=== PATIENT | male | born 1935 | race Caucasian/White ===

== ENCOUNTER 2018-09-21 09:56 | Emergency (ER) | payer OTHER ==
[~2018-09-21] VITALS: Ht 177.8 cm; Wt 86.2 kg
[2018-09-21 10:07] VITALS: Ht 177.8 cm; Wt 86.2 kg
[2018-09-21 10:50] LABS: CALCIUM 9.8 mg/dL (8.5-10.1); CARBON DIOXIDE 26.1 mmol/L (21-32); CHLORIDE SERUM 109 mmol/L (98-107); CREATININE SERUM 1.3 mg/dL (0.7-1.3); GLUCOSE SERUM 115 mg/dL (74-106); SODIUM SERUM 146 mmol/L (136-145)
[2018-09-21 10:55] LABS: ALBUMIN 3.8 g/dL (3.4-5.0); ALKALINE PHOSPHATASE 106 U/L (46-116); ALT/SGPT 8 U/L (16-63); AST/SGOT 8 U/L (15-37); BILIRUBIN TOTAL 3.02 mg/dL (0.20-1.00); TOTAL PROTEIN, SERUM 7.6 g/dL (6.4-8.2)
[2018-09-21 10:56] LABS: PLATELET COUNT 195 x10^3mcL (130-400)
[2018-09-21] MEDS ORDERED: ZESTRIL5 MG (12:01)
[2018-09-21] MEDS ORDERED: ELIQUIS2.5 MG (12:01)
[2018-09-21 12:10] LABS: PHOSPHOROUS 2.5 mg/dL (2.5-4.9)
[2018-09-21 13:57] LABS: microscopic required? YES; urine erythrocyte 1+ (NEGATIVE)
[2018-09-21 14:15] VITALS: BP 165/83
== END 2018-09-21 14:46 | disposition home or self-care (01) ==
LOC: ED 09:56
PROVIDERS: Emergency Medicine
DX: E86.0 Dehydration (principal); R53.1 Weakness; I10 Essential (primary) hypertension; I48.91 Unspecified atrial fibrillation
CPT/HCPCS: J7030; Q0092

== ENCOUNTER 2018-10-09 13:20 | Inpatient (IN) | payer OTHER ==
[~2018-10-09] VITALS: Ht 170.2 cm; Wt 92.5 kg
[~2018-10-09 13:20] MED LIST: ELIQUIS2.5 MG; ZESTRIL5 MG
[2018-10-09 13:29] VITALS: Ht 170.2 cm; Wt 92.5 kg
--- NOTE | 2018-10-09 13:40 | NUR ---
PT BIB [facility] AND PLACED IN BED. PT AAOX4 WITH C/O INCREASED GENERALIZED WEAKNESS TODAY. [facility] WAS CALLED INITIALLY FOR A LIFT ASSIST S/P PT FALL WHILE WALKING TO RESTROOM WITH WALKER. PT STATES HE WAS UNABLE TO WALK THE DISTANCE AND FELL SIDEWAYS. PT'S FAMILY MEMBERS WERE UNABLE TO LIFT PT SO THEY CALLED 911. PT ALSO STATING HE IS OUT OF HIS HOME MEDICATIONS X 2 DAYS. PT WITH NO OTHER COMPLAINTS AT THIS TIME. PT PLACED ON MONITOR. NO SIGNS OF DISTRESS NOTED AT THIS TIME.
--- NOTE | 2018-10-09 13:51 | NUR ---
DR POLLARD MADE AWARE OF PT'S CURRENT O2 SAT, STS TO HAVE RT DRAW ABGS PRIOR TO PLACING PT ON 2L VIA NC.
--- NOTE | 2018-10-09 13:52 | NUR ---
PT'S LABS DRAWN FROM [facility] IV.
--- NOTE | 2018-10-09 13:59 | NUR ---
PT ASSISTED WITH URINAL AT BEDSIDE, STS "I NEED MORE TIME" PRIVACY GIVEN.
--- NOTE | 2018-10-09 14:07 | NUR ---
XRAY AT BEDSIDE.
--- NOTE | 2018-10-09 14:09 | NUR ---
PT TAKEN TO CT.
[2018-10-09 14:18] LABS: CALCIUM 9.4 mg/dL (8.5-10.1); CARBON DIOXIDE 26.6 mmol/L (21-32); CHLORIDE SERUM 107 mmol/L (98-107); CREATININE SERUM 1.2 mg/dL (0.7-1.3); GLUCOSE SERUM 107 mg/dL (74-106); POTASSIUM SERUM 4.1 mmol/L (3.5-5.1); SODIUM SERUM 140 mmol/L (136-145)
[2018-10-09 14:19] LABS: BASOPHIL % 0.6 % (0-2); PLATELET COUNT 181 x10^3mcL (130-400); RED CELL DISTRIBUTION WIDTH 13.9 % (11.5-14.5)
--- NOTE | 2018-10-09 14:25 | NUR ---
PER DR LATRICE ESPINAL TO SEND URINE FOR TESTING NO URINE DIP NEEDED.
[2018-10-09 14:29] LABS: ALBUMIN 3.5 g/dL (3.4-5.0); ALKALINE PHOSPHATASE 112 U/L (46-116); AST/SGOT 18 U/L (15-37); C REACTIVE PROTEIN 0.5 mg/dL (<=0.9); TOTAL PROTEIN, SERUM 7.1 g/dL (6.4-8.2)
[2018-10-09 14:31] LABS: CK-MB 1.4 ng/mL (0-3.6); FREE T4 1.23 ng/dL (0.76-1.46); FREE THYROXINE INDEX 3.6 ug/dL (1.4-4.5); T4(THYROXINE) 9.6 ug/dL (4.7-13.3)
[2018-10-09 14:43] LABS: T3 TOTAL 1.08 ng/mL
[2018-10-09 14:46] LABS: ALT/SGPT 14 U/L (16-63)
--- NOTE | 2018-10-09 14:50 | NUR ---
PT ASSISTED ONTO BEDSIDE COMMODE WITH EMT RACHEL FOR ASSISTANCE, PT REQUESTING PRIVACY UPON ATTEMPTING TO HAVE BM. CALL LIGHT WITHIN REACH, PRIVACY PROVIDED.
[2018-10-09 15:06] LABS: ERYTHROCYTE SED RATE 18 mm/hr (0-20)
--- NOTE | 2018-10-09 15:09 | NUR ---
HARD, FORMED AND YELLOW/ORANGE BM NOTED IN BEDSIDE COMMODE, PT WAS CLEANED BY ME, UPON PLACING PT BACK INTO BED, PT STS "I NEED THE URINAL", PT PROVIDED WITH PRIVACY WHILE USING URINAL. PT ON FULL CM, CALL LIGHT WITHIN REACH.
[2018-10-09 15:12] LABS: microscopic required? YES; urine erythrocyte TRACE (NEGATIVE)
--- NOTE | 2018-10-09 16:05 | NUR ---
PT STS HE HAS HAD AN INCREASE OF URINARY FREQUENCY AND PAIN TO PENIS UPON URINATING, PT STS "IT TAKES A LONG TIME TO PEE", DR POLLARD MADE AWARE, NO NEW ORDERS GIVEN.
--- NOTE | 2018-10-09 16:07 | NUR ---
ATTEMPTED TO GIVE REPORT TO JULIET ALCANTARA STS SHE WILL CALL BACK IN APPROX 15 MINS TO RECEIVE REPORT FOR PT.
--- NOTE | 2018-10-09 16:15 | NUR ---
TONIA BARRERA, PT'S SON PERSONAL CELL [phone] TOÑO HOLLY PT'S PERSONAL [phone] KRISTIAN BARRERA PT'S SON PERSONAL CELL [phone] MIGUEL A BARRERA PT'S GRANDSON PERSONAL CELL [phone]
--- NOTE | 2018-10-09 16:29 | NUR ---
REPORT GIVEN TO MARICRUZ CHUNG TO ASSUME CARE OF PT.
--- NOTE | 2018-10-09 16:45 | NUR ---
PT RECIEVED FROM ER VIA [facility]. BP 201/99, HR 79, WILL NOTIFY DR PATEL. A/O X4 WITH NO [place]LL[place] OR DIZZINESS. TELE #12 CONNECTED TO PT. DENIES ANY CP OR PRESSURE AT THIS TIME. IV IN LAC INTACT AND PATENT WITH NO REDNESS OR INFLAMMATION. SAFETY PRECAUTIONS IN PLACE, CALL LIGHT WITHIN REACH, WILL MONITOR.
--- NOTE | 2018-10-09 16:45 | NUR ---
PT RECIEVED FROM ER VIA [facility]. BP 201/99, HR 79, CHARGE NOTIFIED, CLONIDINE 0.1 MG PRN GIVEN AND WILL REASSESS. A/O X4 WITH NO [place]LL[place] OR DIZZINESS. TELE #12 CONNECTED TO PT. DENIES ANY CP OR PRESSURE AT THIS TIME. IV IN LAC INTACT AND PATENT WITH NO REDNESS OR INFLAMMATION. SAFETY PRECAUTIONS IN PLACE, CALL LIGHT WITHIN REACH, WILL MONITOR.
--- NOTE | 2018-10-09 18:25 | NUR ---
CALLED DR PATEL AND NOTIFIED HIM OF PT BLOOD PRESSURE OF 201/99 AND THEN 190/93. ALSO NOTIFIED HIM ABOUT PT LACTIC ACID OF 3.3. NEW ORDERS FOR HYDRALOZINE 20MG IVP NOW AND THEN HYDRALOZINE 10MG IVP Q 4 HRS PRN. WILL CARRY OUT.
[2018-10-09 19:00] VITALS: BP 151/64
--- NOTE | 2018-10-09 19:10 | NUR ---
PT BP NOW AT 151/64, P 77, MAP 91. NO DISTRESS NOTED. ALL CARES TOLERATED WELL, NO DISTRESS, PAIN, OR SOB NOTED. IV INTACT AND PATENT WITH NO REDNESS OR INFLAMMATION NOTED. DENIES ANY CP OR PRESSURE. SAFETY PRECAUTIONS IN PLACE, CALL LIGHT WITHIN REACH, WILL ENDORSE CARE TO NIGHT NURSE.
[2018-10-09 19:15] VITALS: BP 201/99
--- NOTE | 2018-10-09 20:12 | NUR ---
RECEIVED PATIENT IN BEDAWAKE, ALERT AND ORIENTED WITH NO SIGN OF ACUTE DISTRESS NOTED. TELE#12 AFIB ON MONITOR, DENIES CHEST DISCOMFORT. EDEMA +2 NOTED TO BLE, PATIENT ON ELIQUIZ PO. RESPIRATION EVENA ND NONLABOR WITH CLEAR BS. ABDOMEN ROUND AND NONTENDER WITH ACTIVE BS. IV TO LAC INTACT, HEPLOCK. WILL CONTINUE TO MONITOR.
--- NOTE | 2018-10-09 20:56 | NUR ---
C/O PAIN IN URINATION TYLENOL 650MG PO GIVEN AND TO PAGE DR PATEL.
[2018-10-09 21:25] VITALS: BP 161/80
--- NOTE | 2018-10-09 21:50 | NUR ---
SPOKE DR PATEL OVER THE PHONE RE PATIENT C/O OF PAIN AND DIFFICULTY IN URINATION. BLADDER SCAN SHOWED 369 ML OF URINE, MOSELEY CATH INSERTED ORDERED BY DR PTAEL. BLOOD NOTED ON TUBINGS ON INSERTION. WILL CONTINUE TO MONITOR.
--- NOTE | 2018-10-10 05:04 | NUR ---
CHECKED AT INTERVALS FOR NEEDS AND SAFETY. HAD BM X1 IN SMALL AMOUNT. BP-196/87, CATAPRES 0.1MG PO GIVEN. WILL CONTINUE TO MONITOR.
[2018-10-10 05:41] VITALS: BP 196/87
--- NOTE | 2018-10-10 06:10 | NUR ---
C/O LOWER ABDOMINAL PAIN TYLENOL 650MG PO GIVEN. BP RECHECKED-148/51 AFTER CLOMIDINE PO WAS GIVEN. SB 48 ON TELE, VITAL SIGN CHECKED BP-148/51 MAP-83. R-17, HR-48, O2 SAT97% RA. PATIENT ASSYMPTOMATIC. WILL ENDORSE CONTINOUS CARE TO AM SHIFT.
[2018-10-10 06:13] VITALS: BP 148/51
[2018-10-10 06:27] LABS: CALCIUM 9.2 mg/dL (8.5-10.1); CARBON DIOXIDE 21.6 mmol/L (21-32); CHLORIDE SERUM 106 mmol/L (98-107); CREATININE SERUM 1.9 mg/dL (0.7-1.3); GLUCOSE SERUM 118 mg/dL (74-106); POTASSIUM SERUM 4.4 mmol/L (3.5-5.1); SODIUM SERUM 140 mmol/L (136-145)
--- NOTE | 2018-10-10 07:20 | NUR ---
RECEIVED HAND OFF REPORT FROM NURSE. PATIENT IS FOUND LAYING SEMIFOWLERS IN BED. EYES CLOSED BUT ROUSABLE TO PHYSICAL STIMULI THEN A/O X4. PATIENT DENIES COMPLAINTS AT THIS TIME. TELE MONITOR SHOWING AFIB MIQUEL IN THE 40'S NURSE REPORTED THAT BLOOD PRESSURE WAS VERY HIGH LAST NIGHT AND LOW HEART RATE IS POSSIBLE DUE TO BLOOD PRESSURE MEDICATION. MOSELEY CATH IN PLACE DRAINING DARK MARSHALL URINE TO BAG, TUBING PROXIMAL TO PATIENT HAS DARK RED BLOOD. WILL MAKE DR AWARE. CALL LIGHT WITHIN REACH OF PATIENT, WILL CONTINUE TO MONITOR
[2018-10-10 08:49] VITALS: BP 134/67
--- NOTE | 2018-10-10 09:23 | NUR ---
DR. PATEL WITH PATIENT AT THIS TIME. INFOMRED DR OF BLOOD SEEN IN MOSELEY CATH. DR WILL START PATIENT ON FLOWMAX DUE TO BPH. UPDATED DR OF PATIENT BLOOD PRESSURE AND HR. NEW ORDERS TO BE ENTERED. DR STATED THAT PATIENT WILL BE REMAINING IN HOSPTIAL AND TO MOVE PATIENT FROM OBSERVATION TO INPATIENT. CALL IGHT WITHIN REACH OF PATIENT. PATIENT SITTING UP EAING BREAKFAST AT THIS TIME
--- NOTE | 2018-10-10 10:11 | NUR ---
ADMINISTERED MEDICATION PER MAR. PATIENT AWAKE AND ALERT, SITTING UP IN BED AT THIS TIME. CALL LIGHT WITHIN REACH, WILL CONTINUE TO MONITOR
--- NOTE | 2018-10-10 10:22 | NUR ---
DR PATEL CHANGED BLOOD PRESSURE MEDICATION. RECEIVED ORDER FOR ONE TIME DOSE OF AMLODIPINE SINCE PATIENT DID NOT RECEIVE LISINOPRILL THIS AM.
--- NOTE | 2018-10-10 10:57 | NUR ---
PT WITH PATIENT AT THIS TIME. GETTING PATIENT UP TO WALK AND ASSESS MOBILITY. WILL CONTINUE TO MONITOR
--- NOTE | 2018-10-10 12:01 | NUR ---
PATIENT SITTING UP AT THIS TIME, EATING LLUNCH. DENIES COMPLAINTS. URINE OUTPUT REMAINS AT 100ML IN MOSELEY COLLECTION BAG. CALL LIGHT WITHIN REACH WILL CONTINUE TO MONITOR
[2018-10-10 12:36] VITALS: BP 153/68
--- NOTE | 2018-10-10 14:02 | NUR ---
PATIENT SITTING UP AT THIS TIME. HR IS IN THE 50S SHOWING AFIB ON THE MONITOR. PATIENT DENIES PAIN ABD NOT DISTENDED. REQUESTING TO TAKE NAP AT THIS TIME.
[2018-10-10 16:07] VITALS: BP 165/78
--- NOTE | 2018-10-10 16:15 | NUR ---
(SECOND FACING BASTER) IN THE STATION AND ORDERED PT MOSELEY CATH TO IRRIGATE DUE TO HEMATURIA AND CLOGGING PT MOSELEY CATH. MADE KNOW THAT PT IS ON ELIQUIS AND PT WITH HEMATURIA, SAYS HE WILL NOT DISCONTINUE THE ELIQUIS DUE TO PT ATRIAL FIBRILLATION. SUSAN CHUNG ASSIGNED TO THIS PT MADE AWARE OF ABOVE.
--- NOTE | 2018-10-10 16:18 | NUR ---
PATIENT MOSELEY SHOWS 150 ML OF BARD RED DRAINIAGE. BLADDER SCAN DONE SHOWING APPROX 480ML. INFORMED DR SCHULER. DR ORDERED TO IRRIGATE PATIENT MOSELEY WITH 100CC OF NS. WITH HELP OF RAD CHUNG, PATIENT MOSELEY WAS IRRIGATED WITH APPROX 40Ml OF SLUID AT SUCH TIME THAT PATIENT COMPLAINED OF SEVERE PAIN TO PENIS AREA. BRING RED BLOOD WAS WITHDRAWN WITH MULTIPLE BLOOD CLOTS SEEN. AT THIS TIME US CALLED TO INFORM OF BLADDER SCAN THAT DR SCHULER ORDER. MOSELEY WAS CLAMPED PATIETN STILL HAD FULL BLADDER SO SCAN COULD BE COMPLETED.
--- NOTE | 2018-10-10 17:42 | NUR ---
US TECH COULD NOT VISUALIZE BALLOON OR TIP OF MOSELEY CATH IN BLADDER DURING SCAN, SUSPECTED TO BE INFLATED WITHIN PROSTATE. REMOVED MOSELEY CATH AND WITH ASSISTANCE OF RAD CHUNG ATTEMPTED TO PLACE 24FR 3WAY CATH. UNABLE TO ADVANCE. SUCCESSFULLY PLACED 18FR MOSELEY CATH. DARK RED URINE DRAINED TOTAL OF 600 OUT. US TECH ABLE TO SEE BALLOON AND TIP OF CATH IN BLADDER. IRRIGATED BLADDER WITH 100ML NS PER DR VIDALES ORDER. CLEAN PATIENT AND REPLACED SHEETS. PATIENT REPORTS LESS PAIN FROM SUPRAPUBIC AREA.EATING DINNER AT THIS TIME. CALL IGHT WITHIN REACH WILL REPORT RESULTS TO DR SCHULER
--- NOTE | 2018-10-10 18:47 | NUR ---
CALLED DR Marina KNOX WHO IS WIRELESS SALES ASSOCIATE FOR DR GANGA YAO. UPDATED DR WITH PATIENT CONDITION AND RESULT OF BLADDER SCAN WITH NEW MOSELEY PLACED. RECEIVED ORDER TO FLUSH BLADDER WITH 100CC'S OF NORMAL SALINE AT 10PM. WILL ENDORSE TO NIGHT NURSE. PATIENT STABLE AT THIS TIME.
--- NOTE | 2018-10-10 19:56 | NUR ---
PT RECIEVED AAO REG RESP NO SOB V/S STABLE,KEPT CLEAN AND DRY TO TOUCH,MADE COMFORTABLE IN BED,PT HAS A F/C TO GRAVITY WITH MARSHALL URINE OUTPUT,KEPT CLEAN AND DRY TO TOUCH,PT HAD HIS DINNER AND WILL BE HELP TO EAT BY THE CRIME VICTIM SPECIALIST,PER THE CRIME VICTIM SPECIALIST PATIENT HAD NO TEETH AND ALSO NO DENTURES SO HARD FOR PATIENT TO CHEW AND NOTIFY THE RESIDENT ABOUT THIS AND WILL CONTINUE TO MONITOR.
[2018-10-10 20:16] VITALS: BP 147/62
--- NOTE | 2018-10-10 21:06 | NUR ---
IRRIRGATED AND FLUSH THE MOSELEY WITH 100 CC/HR OF N/S ORDER,WITHOUT ANY RESISTANCE THE URINE FOLLOWING EASILY,DARK MARSHALL IN COLOR.WILL CONTINUE TO MONITOR.
[2018-10-11 05:53] VITALS: BP 118/67
[2018-10-11 06:24] LABS: BASOPHIL % 0.3 % (0-2); PLATELET COUNT 153 x10^3mcL (130-400); RED CELL DISTRIBUTION WIDTH 14.5 % (11.5-14.5)
[2018-10-11 06:28] LABS: CARBON DIOXIDE 23.2 mmol/L (21-32); CHLORIDE SERUM 107 mmol/L (98-107); CREATININE SERUM 1.9 mg/dL (0.7-1.3); GLUCOSE SERUM 100 mg/dL (74-106); POTASSIUM SERUM 4.2 mmol/L (3.5-5.1); SODIUM SERUM 141 mmol/L (136-145)
--- NOTE | 2018-10-11 06:34 | NUR ---
PT HAD A RESTING NIGHT NO CHANGE AT THIS ENOCH,KEPT CLEAN AND DRY TO TOUCH,WILL CONTINUE TO MONITOR.
--- NOTE | 2018-10-11 07:57 | NUR ---
RECEIVED PATIENT FROM JULIET ORTA. PATIENT ASLEEP IN BED, NO VISIBLE SIGNS OF PAIN OR DISTRESS. VS STABLE. WILL AWAIT DR PATEL TO ARRIVE AND SPEAK WITH PATIENT ABOUT PLAN OF CARE FOR TODAY. CALL LIGHT IN REACH, PATIENT CLOSE TO NURSES STATION.
[2018-10-11 08:13] VITALS: BP 104/55
--- NOTE | 2018-10-11 08:29 | NUR ---
RECEIVED A CALL FROM (NEPRHOLOGIST) AND UPDATED HIM OF PT CURRENT STATUS WITH HIS MOSELEY AND UIRNE OUTPUT, NEW ORDER RECEIVED TO START NORMAL SALINE AT 75ML/HR. OLYA CHUNG ASSIGNED TO THIS PT MADE AWARE OF ABOVE.
[2018-10-11] MEDS ORDERED: NOR5 PO (08:32)
[2018-10-11] MEDS ORDERED: LEV250 PO (08:32)
[2018-10-11] MEDS ORDERED: FLO4 PO (08:32)
[2018-10-11] MEDS ORDERED: TYL325 PO (08:33)
[2018-10-11] MEDS ORDERED: PROSCAR5 MG PO (08:33)
--- NOTE | 2018-10-11 09:10 | NUR ---
DR PATEL IN TO SEE PATIENT. WAS TOLD THAT PATIENT BP WAS 104/55 AND TO HOLD BOTH AM HYDRALAZINE AND AM AMLODIPINE. ALSO TOLD DR THAT PT SHERIDAN RECOMMEND SNF PLACEMENT. STATES HE WILL DISCHARGE PATIENT TO SNF, ADJUST MEDICATIONS, AND NEEDS PATIENT TO GO TO SNF W FC. ALSO, CHARGE NURSE RAD SPOKE W DR SCHULER ABOUT PATIENT BLADDER SCAN AND MOSELEY OUTPUT. DR SCHULER WILL ORDER NS FLUIDS FOR PATIENT. WILL WAIT FOR SS TO LOOK FOR PLACEMENT AND CONTINUE TO EVALUATE URINE OUTPUT TO FC.
--- NOTE | 2018-10-11 10:28 | NUR ---
PATIENT CONTINUES TO REFUSE PO MEDICATIONS, ALSO REFUSES PHYSICAL THERAPY SESSION WITH SANGITA CHIU. PATIENT STATES "LEAVE ME ALONE" AND BECAME VERBALLY AGGRESSIVE. DR PATEL MADE AWARE. CALL LIGHT IN REACH, PATIENT RETURNED TO SLEEP.
--- NOTE | 2018-10-11 11:47 | NUR ---
CALLED AND SPOKE TO (SCAFFOLD SETTER) AND MADE HIM AWARE THAT PT IS BEDING DISCHARGE TO SNF FOR REHAB, CLARIFIED WITH HIM IF HE WANTED TO CONTINUE PT IVF FOR HYDRATION AT SNF. NEW ORDER RECEIVED FROM TO INCREASE CURRENT IVF RATE AT 200ML/HR AND ONCE THE LITER OF NS BAG IS OVER TO DISCONTINUE AND HEPLOCK PT. ALSO ORDERED TO HAVE PT FOLLOW UP WITH A UROLOGIST AN OUTPATIENT AND CLEARED PT FOR DISCHARGE TO SNF. CHANI CHUNG ASSIGNED TO THIS PT MADE AWARE OF ABOVE. CALLED ROHAN FROM CASE MANAGEMENT AND MADE HER AWARE OF 'S ORDER.
[2018-10-11 12:05] VITALS: BP 136/63
--- NOTE | 2018-10-11 13:12 | NUR ---
PHYSICAL THERAPY NOTE ATTEMPTED FOR PHYSICAL THERAPY SCHEDULE SCEEION 2ND TIME, PATIENT WAS AGITATED AND REFUSED TO PARTICIPATE AT THIS TIME
[2018-10-11 15:56] VITALS: BP 134/62
--- NOTE | 2018-10-11 16:49 | NUR ---
PATIENT TRANSFER INITIALED BY PATIENT. REPORT GIVEN TO JULIET NGUYEN AT RECEIVING FACILITY. [email or web address]IENT PICK FROM 1830 TO 1700. PATIENT MADE AWARE, DAUGHTER IN [place] MADE AWARE, CHARGE NURSE RAD MADE AWARE. MOSELEY CATHETER IRRIGATED WITH [address] SCHULER. TELE MONITOR REMOVED AND RETURNED TO [facility]. IV CATHTER REMAINS, MOSELEY REMAINS AND ENDORSED TO RECEIVING NURSE. ALSO MADE AWARE THAT PATIENT REQUIRES FU CONSULTATION WITH UROLOGIST. AWAITING TRANSPORT AT THIS TIME, NO COMPLAINTS OF PAIN OR DISCOMFORT.
[2018-10-11 17:16] VITALS: BP 134/62
--- NOTE | 2018-10-11 17:46 | NUR ---
[place] ARRIVED TO TRANSPORT PATIENT. TRANSFER PACKET GIVEN TO [place] STAFF. PATIENT VIA [facility] OFF UNIT.
== END 2018-10-11 17:34 | DRG 682 ==
LOC: ED 13:20 → DU 15:42
PROVIDERS: Specialist; ADMIT Internal Medicine Pulmonary Disease
DX: N17.9 Acute kidney failure, unspecified (principal); J18.9 Pneumonia, unspecified organism; N13.39 Other hydronephrosis; I48.2 Chronic atrial fibrillation; I12.9 Hypertensive chronic kidney disease with stage 1 through stage 4 chronic kidney disease, or unspecified chronic kidney disease; N18.3 Chronic kidney disease, stage 3 (moderate); I25.10 Atherosclerotic heart disease of native coronary artery without angina pectoris; N40.1 Benign prostatic hyperplasia with lower urinary tract symptoms; R33.8 Other retention of urine; Z68.31 Body mass index [BMI] 31.0-31.9, adult; Z87.891 Personal history of nicotine dependence; Z79.01 Long term (current) use of anticoagulants
CPT/HCPCS: 36600; 84439; 97116-GP; G0378; J0360; J2543; J7030; J7050; Q0092

== ENCOUNTER 2018-11-12 15:29 | Inpatient (IN) | payer OTHER ==
[~2018-11-12] VITALS: Ht 170.2 cm; Wt 79.4 kg
[~2018-11-12 15:29] MED LIST changes: +FLO4 PO; +LEV250 PO; +NOR5 PO; +PROSCAR5 MG PO; +TYL325 PO
--- NOTE | 2018-11-12 15:40 | NUR ---
LAB BLOOD DRAW COMPLETED
--- NOTE | 2018-11-12 15:42 | NUR ---
EKG IN PROGRESS
--- NOTE | 2018-11-12 15:48 | NUR ---
PORTABLE CXR AT BEDSIDE
--- NOTE | 2018-11-12 15:48 | NUR ---
PT PRESENTS TO ED VIA AMBULANCE FOR SOB. PER MEDICS THERE WAS A "THERAPIST" AT HOME THAT CHECKED PTS O2 SAT AND NOTICED IT TO BE IN THE LOW TO MID 80'S AND CALLED 911. PT IS AAOX4 LABORED BREATHING LUNGS CTA DENIES CP. PT RECENTLY DISCHARGED FROM HOSPITAL INPATIENT STATUS DUE TO "HYPERTENSIVE CRISIS" PT GOWNED PLACED ON FULL CM AFIB, VSS AT THIS TIME. PT ON 02 VIA MASK AT 10L AT THIS TIME. PT SITTING IN BED IN HIGH FOWLERS POSITION FOR COMFORT. PT HAS POLST DNR, AWAITING MD SWARTZ AND ORDERS WILL MONITOR
[2018-11-12 16:12] LABS: BASOPHIL % 0.4 % (0-2); PLATELET COUNT 361 x10^3mcL (130-400); RED CELL DISTRIBUTION WIDTH 13.5 % (11.5-14.5)
[2018-11-12 16:21] LABS: CALCIUM 8.9 mg/dL (8.5-10.1); CARBON DIOXIDE 23.5 mmol/L (21-32); CHLORIDE SERUM 106 mmol/L (98-107); CREATININE SERUM 3.3 mg/dL (0.7-1.3); GLUCOSE SERUM 111 mg/dL (74-106); POTASSIUM SERUM 3.3 mmol/L (3.5-5.1); SODIUM SERUM 144 mmol/L (136-145)
[2018-11-12 16:24] LABS: ALBUMIN 2.5 g/dL (3.4-5.0); ALKALINE PHOSPHATASE 106 U/L (46-116); ALT/SGPT 10 U/L (16-63); AST/SGOT 14 U/L (15-37); BILIRUBIN TOTAL 2.8 mg/dL (0.20-1.00); TOTAL PROTEIN, SERUM 7.6 g/dL (6.4-8.2)
--- NOTE | 2018-11-12 17:35 | NUR ---
DR WINN AT BEDSIDE SPEAKING WITH PT REGARDING TX AND POC. PT VERBALIZED UNDERSTANDING
--- NOTE | 2018-11-12 17:57 | NUR ---
REPORT GIVEN TO NETTA CHUNG IN TELE FLOOR
--- NOTE | 2018-11-12 18:05 | NUR ---
RECEIVED PT FROM ED VIA [facility], CAME IN DUE TO SOB. AAOX4. DENIES HEADACHE/DIZZINESS. ABLE TO FOLLOW COMMANDS. LEFT HAND EDGE BURNISHER IS WEAKER THAN THE RIGHT. NO ARM DRIFT/FACIAL DROOP NOTED.C/O MILD SOB, O2 SAT=93% ON 4LPM/NC. W/ PRODUCTIVE COUGH, ABLE TO EXPECTORATE PHLEGM (COLOR VARIED FROM GREEN TO YELLOW). LUNG SOUNDS DIMINISHED ON AUSCULTATION. DENIES ABDOMINAL DISCOMFORT. ABDOMEN IS SOFT. HAD SOFT BM TODAY, PT CLEANED AND MADE COMFORTABLE. URINE INCONTINENT. W/ DRY SCAB ON RLE AND DARK BROWN DISCOLORATIONS ON BLE. IV SITE PATENT AND INTACT. RECEIVED PT FROM ED W/ ZITHROMAX AND NS ONGOING. SIDE RAILS UPX2. CALL LIGHT ON REACH. HOB ELEVATED AT 45 DEG. PRIMARY NURSE NETTA AT BEDSIDE FOR CONTINUITY OF CARE
--- NOTE | 2018-11-12 18:10 | NUR ---
PT TO TELE FLOOR VIA GURNEY NO DISTRESS ON PORTABLE CM, NETTA RESUMING IVF INFUSION NOTED IN EMAR.
[2018-11-12 18:19] VITALS: BP 155/70
[2018-11-12 18:29] VITALS: Ht 170.2 cm; Wt 79.4 kg
--- NOTE | 2018-11-12 18:39 | NUR ---
PT RESTING IN NO ACUTE DISTRESS, OCC. PRODUCTIVE COUGH NOTED. HOB ELEVETED. FAMILY AT BEDSIDE. NO C/O PAIN OR DISCOMFORT AT THIS TIME. WILL BE ENDORSED TO INCOMING SHIFT.
--- NOTE | 2018-11-12 19:20 | NUR ---
CARE ASSUMED FROM OUTGONG RN. PT RESTING COMFORTABLY IN BED. NO ACUTE DISTRESS NOTED. EVEN AND UNLABORED RESPIRATIONS ON 4LNC, PRODUCTIVE COUGH NOTED. MEDSURG PT. IV PATENT AND INTACT RUNNING FLUIDS PER EMAR. NO C/O OF PAIN AT THIS TIME. BED IN LOWEST POSITION. SIDE RAILS UPX2. CALL LIGHT WITHIN REACH. WILL CONTINUE TO MONITOR.
[2018-11-12 19:46] VITALS: BP 125/70
--- NOTE | 2018-11-13 00:43 | NUR ---
PT SLEEPING COMFORTABLY IN BED. NO ACUTE DISTRESS NOTED. EVEN AND UNLABORED RESPIRATIONS ON 4LNC. IV PATENT AND INTACT RUNNING FLUIDS PER EMAR. SEIZURE PRECAUTION IN PLACE. BED IN LOWEST POSITION. SIDE RAILS UPX2. CALL LIGHT WITHIN REACH. WILL CONTINUE TO MONITOR.
[2018-11-13 05:53] VITALS: BP 138/55
--- NOTE | 2018-11-13 06:31 | NUR ---
PT SLEPT COMFORTABLY IN INTERVALS THROUGHOUT THE SHIFT. ALL NEEDS TENDED TO AND MET. ALL SCHEDULED MEDICATIONS GIVEN. EVEN AND UNLABORED RESPIRATION ON 4LNC, PRODUCTIVE COUGH WITH THICH YELLOW PHLEGM NOTED. C/O STRESS INCONTINENCE WHILE COUGHING. IV PATENT AND INTACT RUNNING FLUIDS PER EMAR. BED IN LOWEST POSITION. SEIZURE PRECAUTION IN PLACE. SIDE RAILS UPX2. CALL LIGHT WITHIN REACH. WILL ENDORSE TO ONCOMING SHIFT.
[2018-11-13 06:35] LABS: ALKALINE PHOSPHATASE 92 U/L (46-116); ALT/SGPT 12 U/L (16-63); AST/SGOT 11 U/L (15-37); BILIRUBIN TOTAL 1.6 mg/dL (0.20-1.00); CALCIUM 8.1 mg/dL (8.5-10.1); CARBON DIOXIDE 26.5 mmol/L (21-32); CHLORIDE SERUM 111 mmol/L (98-107); CREATININE SERUM 3.3 mg/dL (0.7-1.3); GLUCOSE SERUM 104 mg/dL (74-106); POTASSIUM SERUM 3.7 mmol/L (3.5-5.1); SODIUM SERUM 147 mmol/L (136-145); TOTAL PROTEIN, SERUM 6.4 g/dL (6.4-8.2)
[2018-11-13 07:15] LABS: ALBUMIN 2.1 g/dL (3.4-5.0)
--- NOTE | 2018-11-13 07:20 | NUR ---
RECEIEVED PT FROM NIGHT NURSE. PT IS LAYING DOWN IN BED WITH HOB UP RESTING. PT LOOKS TO BE IN NO ACUTE DISTRESS AT THIS TIME AND DENIES ANY PAIN. RESPIRATIONS EVEN AND UNLABORED ON 4L NC. IV SITE PATENT WITH NO SIGNS OF ERYTHEMA OR SWELLING WITH IV FLUIDS INFUSING. BED IN LOWEST POSITION, CALL LIGHT WITHIN REACH. WILL CONITNUE TO MONITOR.
--- NOTE | 2018-11-13 08:15 | NUR ---
PT STATES HAVING DIFFICULTY CHEWING LARGE PIECES OF FOOD. PT IS REQUESTING TO THAT WOULD BE EASIER TO EAT. WILL NOTIFY
[2018-11-13 08:45] VITALS: BP 138/62
--- NOTE | 2018-11-13 11:45 | NUR ---
PT IS LAYING DOWN IN BED WITH HOB UP RESTING. PT LOOKS TO BE IN NO ACUTE DISTRESS AT THIS TIME AND DENIES ANY PAIN. IV SITE PATENT WITH NO SIGNS OF ERYTHEMA OR SWELLING WITH IV FLUIDS INFUSING. BED IN LOWEST POSITION, CALL LIGHT WITHIN REACH. FAMILY MEMBERS AT BEDSIDE. WILL CONTINUE TO MONITOR.
--- NOTE | 2018-11-13 12:55 | NUR ---
PT IS LAYING DOWN IN BED WITH HOB UP TALKING WITH DR. DR. WINN AT BEDSIDE AND FAMILY AT BEDSIDE DISCUSSING PLAN OF CARE. BED IN LOWEST POSITION, CALL LIGHT WITHIN REACH. WILL CONITNUE TO MONITOR.
[2018-11-13] MEDS ORDERED: ROC1I IV (13:54)
[2018-11-13 14:20] LABS: BASOPHIL % 0.2 % (0-2); PLATELET COUNT 348 x10^3mcL (130-400); RED CELL DISTRIBUTION WIDTH 13.6 % (11.5-14.5)
[2018-11-13 14:40] VITALS: BP 138/62
[2018-11-13 17:38] VITALS: BP 135/54
--- NOTE | 2018-11-13 18:09 | NUR ---
PT IS LAYING DOWN IN BED WITH HOB UP RESTING. PT LOOKS TO BE IN NO ACUTE DISTRESS AT THIS TIME AND DENIES ANY PAIN. IV SITE PATENT WITH NO SIGNS OF ERYTHEMA OR SWELLING WITH IV FLUIDS INFUSING. PT STATES CONTINUING TO HAVE STRESS INCONTIENCE. BED IN RESPRIATIONS EVEN AND UNLABORED ON 4L NC. PRODUCTIVE COUGH CONTINUES. BED IN LOWEST POSITION, CALL LIGHT WITHIN REACH. WILL ENDORSE TO ONCOMING SHIFT.
--- NOTE | 2018-11-13 20:00 | NUR ---
RECEIVED PT IN BED, RESTING QUIETLY IN BED, A/O X4. DENIES HEADACHE/DIZZINESS. RESP. EVEN AND UNLABORED. LUNG SOUNDS DIM. [address], HOB ELEVATED. NO ACUTE DISTRESS NOTED. DENIES CP OR ANY DISCOMFORT AT THIS TIME. IVF, NS AT 80ML/HR, INTACT AND INFUSING VIA LAC, SITE CLEAR. NO COMPLAINTS NOTED AT THIS TIME.ASSISTED WITH HS CARE. CALL LIGHT WITHIN REACH. WILL CONTINUE TO MONITOR.
[2018-11-13 20:10] VITALS: BP 143/81
[2018-11-13 20:53] VITALS: BP 143/81
--- NOTE | 2018-11-14 02:24 | NUR ---
RESTING QUIETLY, WITH EYES CLOSED, APPEARS ASLEEP, EASILY AROUSABLE. RESP. EVEN AND UNLABORED. NO ACUTE DISTRESS NOTED. CALL LIGHT WITHIN REACH. WILL CONTINUE TO MONITOR.
[2018-11-14 06:08] VITALS: BP 157/71
--- NOTE | 2018-11-14 06:24 | NUR ---
SLEPT WELL. NO COMPLAINTS NOTED AT THIS TIME. AFEBRILE AND VITAL SIGNS STABLE. RESP. EVEN AND UNLABORED. [address], TARAH. WELL. NO ACUTE DISTRESS NOTED. IVF INTACT AND INFUSING WELL, SITE CLEAR. KEPT COMFORTABLE. NO SIGNIFICANT CHANGE NOTED IN PT,S CONDITION. CALL LIGHT WITHIN REACH. WILL CONTINUE TO MONITOR.
[2018-11-14 06:35] LABS: ALKALINE PHOSPHATASE 102 U/L (46-116); ALT/SGPT 13 U/L (16-63); AST/SGOT 18 U/L (15-37); BILIRUBIN TOTAL 1.08 mg/dL (0.20-1.00); CALCIUM 8.3 mg/dL (8.5-10.1); CARBON DIOXIDE 23.5 mmol/L (21-32); CHLORIDE SERUM 111 mmol/L (98-107); CREATININE SERUM 3.1 mg/dL (0.7-1.3); GLUCOSE SERUM 112 mg/dL (74-106); POTASSIUM SERUM 3.5 mmol/L (3.5-5.1); SODIUM SERUM 146 mmol/L (136-145)
[2018-11-14 06:52] LABS: ALBUMIN 2.1 g/dL (3.4-5.0); TOTAL PROTEIN, SERUM 6.1 g/dL (6.4-8.2)
[2018-11-14 08:34] VITALS: BP 132/64
--- NOTE | 2018-11-14 08:35 | NUR ---
At 0720, recieved patient from night nurse, he was awake, alert, and appears oriented. IV infusing N/S at 80 ml/hr. Respirations regular, he is on oxygen at 1.5 liters/minute, RT at bedside. At 0820, sitting up in bed for breakfast. Patient appears to have reduced apetite. Refused food at this time. Spoke with business services tech, patient has been ordered renal and bladder ultrasound. Patient is unable to keep full bladder. Instructed patient to call with any needs.
[2018-11-14 10:48] LABS: BASOPHIL % 0.2 % (0-2); PLATELET COUNT 336 x10^3mcL (130-400); RED CELL DISTRIBUTION WIDTH 13.9 % (11.5-14.5)
[2018-11-14 13:23] LABS: microscopic required? YES; urine erythrocyte 3+ (NEGATIVE)
[2018-11-14 14:08] VITALS: BP 132/64
--- NOTE | 2018-11-14 14:17 | NUR ---
AT 1300 - URINE COLLECTED AND TAKEN TO LAB FOR UA AND URINE SMEAR ORDERED. URINE IS TURBID WITH SEDIMENTS. PATIENT CONTINUES TO HAVE SOME STRESS INCONTINENCE. AT 1415 - RECEIVED ORDER FOR PLACEEMTN OF URINARY CATHETER FOR HYDRONEPHROSIS.
--- NOTE | 2018-11-14 15:14 | NUR ---
AT 1440 - MOSELEY CATHETER INSERTED AND LEFT ON FREE DRAINAGE. INITIAL URINE WAS YELLOW BUT WITHIN MINUTES URINE DRAINAGE NOTED TO BE OPAQUE PALE BROWN. INITIAL DRAINAGE OF 1000 ML OF URINE DRAINED. URINE CULTURE SENT. AT 1500 - COMMENCED ON IV LEVAQUIN. FIRST DOSE IN PROGRESS. SEEN BY DR EDGE. NEW ORDERS RECEIVED. PATIENT PROVIDED WITH SPECIMEN CONTAINER FOR SPUTUM CULTURE.
[2018-11-14 16:16] VITALS: BP 160/69
--- NOTE | 2018-11-14 18:02 | NUR ---
Currently patient is awake, alert, and oriented. Patient is currently observed eating dinner. IV is infusing 0.45% NS at 100 ml/hour. Cabrera catheter has drained 1600 ml since insertion. Urine is lenora colored with sediments. Respirations are regular, productive cough, but no sputum obtained as yet. No complaints of pain. Will endorse care to night nurse.
--- NOTE | 2018-11-14 20:13 | NUR ---
PT. AWAKE, SITTING UP IN BED.ORIENTED X4. DENIES HEADQACHE OR DIZZINESS. BREATH SOUNDS W/ COARSE RONCHI TO BLL, RESP. EVEN, UNLABORED. NO SOB NOTED. PT. ON 2L/NC. ABD. SOFT AND ROUND, BOWEL SOUNDS ACTIVE. DENIES ABD. PAIN, DENIES NAUSEA. PEDAL PULSES MODERATE. DARKENED DISCOLORATION TO BLE. IVF INFUSING WELL, SITE INTACT. CALL LIGHT WITHIN REACH.
[2018-11-14 20:16] VITALS: BP 151/61
--- NOTE | 2018-11-14 20:51 | NUR ---
PT TACHYPNEIC RR:28 SPO2:92% 2L NC. PT DENIES SOB, INCREASED O2 TO 3L NC SPO2:94% RR:28. WILL CONT.TO MONITOR
--- NOTE | 2018-11-15 01:47 | NUR ---
PT. RESTING QUIETLY, SLEEPING INTERMITTENTLY. NO RESP. DISTRESS THUS FAR. PT. ON 2L/NC IVF INFUSING WELL, SITE REMAINS INTACT. CALL LIGHT WITHIN REACH.
--- NOTE | 2018-11-15 02:30 | NUR ---
SPO2::90% 3L NC, BUBBLE HUMIDIFIER ADDED AND INCREASED O2 TO 4L NC. SPO2 92%. NOTIFIED NURSE DAVID
[2018-11-15 04:55] VITALS: BP 118/56
--- NOTE | 2018-11-15 06:11 | NUR ---
PT.'S O2 SAT INCREASED TO 4L/NC BY RESP. PT. WAS SLEEPING AND SLEPT WITH HIS MOUTH OPEN. SATURATION LEVELS DROPPED DOWN TO 88% WHILE HE WAS ON 2L/NC AND TOOK SOME TIME TO REACH A RANGE OF 92% ON 4LITERS. PLANS TO SLOWLY DECREASE LITERS PER RESP. NO C/O PAIN THROUGHOUT NIGHT. NO RESP. DISTRESS. PT. HAS SOME OCCASIONAL CONGESTED COUGH, MOSTLY NON-PRODUCTIVE. UNABLE TO EXPECTORATE THROUGHOUT SHIFT THE NEEDED SPUTUM. WILL ENDORSE PT CARE TO INCOMING NURSE.
--- NOTE | 2018-11-15 06:20 | NUR ---
PT. SLEPT WELL FOR THE NIGHT. NO C/O PAIN IN LUE ELBOW. NO DRAINAGE FROM LT. ELBOW NOTED. SITE REMAINS SAEED. IV VANCOMYCIN INFUSING, SITE INTACT. CALL LIGHT WITHIN REACH. WILL ENDORSE PT. CARE TO INCOMING NURSE.
[2018-11-15 06:51] LABS: ALBUMIN 1.8 g/dL (3.4-5.0); ALKALINE PHOSPHATASE 99 U/L (46-116); ALT/SGPT 15 U/L (16-63); AST/SGOT 17 U/L (15-37); CALCIUM 7.5 mg/dL (8.5-10.1); CARBON DIOXIDE 25.4 mmol/L (21-32); CHLORIDE SERUM 110 mmol/L (98-107); CREATININE SERUM 1.6 mg/dL (0.7-1.3); GLUCOSE SERUM 114 mg/dL (74-106); POTASSIUM SERUM 3.3 mmol/L (3.5-5.1); SODIUM SERUM 146 mmol/L (136-145)
[2018-11-15 06:55] LABS: BASOPHIL % 0.2 % (0-2); PLATELET COUNT 298 x10^3mcL (130-400); RED CELL DISTRIBUTION WIDTH 13.4 % (11.5-14.5)
[2018-11-15 07:01] LABS: BILIRUBIN DIRECT 0.52 mg/dL (0.0-0.2)
[2018-11-15 07:08] LABS: ALBUMIN 1.8 g/dL (3.4-5.0)
--- NOTE | 2018-11-15 07:49 | NUR ---
Recieved patient from night nurse at 0700. Patient is awake and oriented. Respirations are regular, but he does have sob on exertion. Currently on supplemental oxygen via nasal cannula at 4 L/minute. Expectorating greenish/yellow sputum. Sputum culture taken to lab.IV is infusing 0.45% NS at 100 ml/hour. Cabrera cathether is draining lenora urine, good output. Patient sat up in bed and assisted with breakfast.
[2018-11-15 08:23] VITALS: BP 114/51
--- NOTE | 2018-11-15 09:43 | NUR ---
AT 0845 - IV INFUSION DISCONTINUED PER NEW ORDERS. PHYSICAL THERAPY AT BEDSIDE. PATIENT SAT ON SIDE OF BED BUT DID NOT AMBULATE. AT 0915 - GIVEN 40 MEQ KCL PO PER EMAR FOR K+ LEVEL OF 3.3. PATIENT MADE COMFORTABLE.
--- NOTE | 2018-11-15 13:26 | NUR ---
FAMILY VISITING. UPDATED ON CURRENT PLAN FOR PATIENT TO DC TO SNF FOR CONTINUATION OF IV ANTIBIOTICS.
--- NOTE | 2018-11-15 14:01 | NUR ---
PHYSICAL THERAPY DAILY NOTES CO-SIGN All documentation done by the Pearl Technician for 11/15/18 has been reviewed. I agree with the documentation. Reviewed/Co-Signed by: Afia Vargas PT Documentation Done by: RAFIA HUANG PTA
--- NOTE | 2018-11-15 14:54 | NUR ---
RECEIVED CALL FROM LAB. SPUTUM SENT FOR CULTURE THIS MORNING HAS BEEN REJECTED. ACCORDING TO LAB, SPECIMEN WAS OF POOR QUALITY DUE TO LARGE NUMBER OF SQUAMOUS EPITHELIAL CELLS PRESENT. PATIETN PROVIDED WITH CONTAINER FOR REPEAT SPUTUM COLLECTION.
--- NOTE | 2018-11-15 15:40 | NUR ---
PATIENT IS FOR DISCHARGE TO [facility] TODAY FOR CONTINUATION OF IV ANTIBIOTICS. TRANSPORT IS EXPECTED [id number] HR
[2018-11-15 16:04] VITALS: BP 119/47
[2018-11-15 16:18] VITALS: BP 119/47
--- NOTE | 2018-11-15 16:35 | NUR ---
IV RESITED IN R WRIST. SALINE LOCKED. IV CATHETER FROM [facility] REMOVED INTACT. PATIENT DISCHARGING TO [facility] WITH IV AND MOSELEY CATHETER. PATIENT SIGNED TRANSFER ACKNOWLEDGEMENT FORM.
--- NOTE | 2018-11-15 16:59 | NUR ---
COLLECTED SPUTUM AND DELIVERED TO LAB FOR CULTURE AND SENSITIVITY.
--- NOTE | 2018-11-15 17:46 | NUR ---
AT 1715 - REPORT GIVEN TO NURSE MARIO AT [facility]. PATIENT PREPARED FOR DISCHARGE.
--- NOTE | 2018-11-15 18:09 | NUR ---
DISCHARGED TO [facility]IA [facility], VIA [facility].
== END 2018-11-15 18:10 | DRG 871 ==
LOC: ED 15:29 → MU 17:14 → ED 17:14 → DU 17:14 → MU 18:05
PROVIDERS: Emergency Medicine; Internal Medicine Nephrology; ADMIT Internal Medicine
DX: A41.9 Sepsis, unspecified organism (principal); J18.9 Pneumonia, unspecified organism; N17.9 Acute kidney failure, unspecified; E87.0 Hyperosmolality and hypernatremia; N13.30 Unspecified hydronephrosis; I48.91 Unspecified atrial fibrillation; J44.9 Chronic obstructive pulmonary disease, unspecified; R54 Age-related physical debility; E87.6 Hypokalemia; I13.10 Hypertensive heart and chronic kidney disease without heart failure, with stage 1 through stage 4 chronic kidney disease, or unspecified chronic kidney disease; I25.10 Atherosclerotic heart disease of native coronary artery without angina pectoris; N18.9 Chronic kidney disease, unspecified; N40.0 Benign prostatic hyperplasia without lower urinary tract symptoms; D64.9 Anemia, unspecified; Z66 Do not resuscitate; Z87.891 Personal history of nicotine dependence; Z79.01 Long term (current) use of anticoagulants; Z68.27 Body mass index [BMI] 27.0-27.9, adult
CPT/HCPCS: 97110-GP; 97116-GP; 97530-GP; G0378; J0456; J0696; J1644; J1956; J3490; J7030; J7050; J7060; J7620; Q0092

== ENCOUNTER 2018-12-24 11:40 | Observation (INO) | payer OTHER ==
[~2018-12-24] VITALS: Ht 170.2 cm; Wt 72.6 kg
[~2018-12-24 11:40] MED LIST changes: +ROC1I IV
--- NOTE | 2018-12-24 12:01 | NUR ---
BROUGHT IN BY AMBULANCE AWAKE ALERT ORIENTED,STATED FEELING DIZZY ON AND OFF FOR LONG TIME,
[2018-12-24 12:39] LABS: CALCIUM 8.5 mg/dL (8.5-10.1); CARBON DIOXIDE 28.1 mmol/L (21-32); CHLORIDE SERUM 106 mmol/L (98-107); CREATININE SERUM 1.2 mg/dL (0.7-1.3); GLUCOSE SERUM 116 mg/dL (74-106); POTASSIUM SERUM 3.3 mmol/L (3.5-5.1); SODIUM SERUM 140 mmol/L (136-145)
[2018-12-24 12:42] LABS: BASOPHIL % 0.9 % (0-2); PLATELET COUNT 310 x10^3mcL (130-400)
[2018-12-24 12:43] LABS: ALKALINE PHOSPHATASE 114 U/L (46-116); ALT/SGPT 11 U/L (16-63); AST/SGOT 11 U/L (15-37); BILIRUBIN TOTAL 1.7 mg/dL (0.20-1.00); RED CELL DISTRIBUTION WIDTH 15.7 % (11.5-14.5); TOTAL PROTEIN, SERUM 7.4 g/dL (6.4-8.2)
[2018-12-24 12:45] LABS: ALBUMIN 2.6 g/dL (3.4-5.0)
--- NOTE | 2018-12-24 13:24 | NUR ---
STATES FEELS BETTER,RESP.EASIER, BREATHING TREATMENT STARTED,
--- NOTE | 2018-12-24 14:18 | NUR ---
PT AWAKE ALERT AND ORIENTED. BREATHING UNLABORED WITH 02 BY NC. REMAINS ON CM. X-RAY TECH CELINA AT BEDSIDE TALKING WITH PT.
[2018-12-24] MEDS ORDERED: DAILY VITE1 TA2 PO ×2 (15:29)
--- NOTE | 2018-12-24 17:08 | NUR ---
RECEIVED PT FROM ED VIA ERNESTO, CAME IN DUE TO DIZZINESS AND WEAKNESS. AAOX4. ABLE TO FOLLOW COMMANDS. SPEECH IS CLEAR. HAND BUILDINGS AND GROUNDS DIRECTOR EQUAL. PUPILS ARE BRISK AND REACTIVE TO LIGHT. NO SOB NOTED, CRACKLES NOTED ON UPPER LOBES AND DIMINISHED ON THE BASES, ON 4LPM/NC, O2 SAT=95%. W/ NON-PRODUCTIVE COUGH. DENIES CHEST PAIN/PRESSURE, AFIB ON THE MONITOR, HR AT 72. DENIES ABDOMINAL DISCOMFORT. URINE INCONTINENT. LIMITED ROM ON BLE. ABLE TO TURN AND REPOSITION SELF IN BED. SIDE RAILS UPX2. CALL LIGHT ON REACH. HOB ELEVATED AT 30 DEG. SON AT BEDSIDE. PRIMARY NURSE KRISS AT BEDSIDE FOR CONTINUITY OF CARE
[2018-12-24 17:29] VITALS: BP 139/64
[2018-12-24 17:35] VITALS: Ht 170.2 cm; Wt 72.6 kg
--- NOTE | 2018-12-24 17:59 | NUR ---
PATIENT RESTING IN BED WITH HOB ELEVATED, RT AT BEDSIDE TEACHING PATIENT HOW TO USE INCENTIVE SPIROMETRY, PATIENT PERFORM RETURN DEMONSTRATION. RN INFORM PATIENT HIS DINNER WILL BE DELIVER SOON. CALL LIGHT WITHIN REACH.
--- NOTE | 2018-12-24 18:40 | NUR ---
ASSISTING PATIENT WITH HIS DINNER, NO DISTRESS NOTED, CALL LIGHT WITHIN REACH.
--- NOTE | 2018-12-24 19:05 | NUR ---
RECEIVED PT SITTING UP IN BED EATING DINNER, NO ACUTE DISTRESS OBSERVED, DENIES PAIN OR DISCOMFORT. AA/OX4, ABLE TO MAKE NEEDS KNOWN, SPEECH CLEAR AND APPROPRIATE, C/O INTERMITTENT DIZZINESS. AFIB TO TELE #11, DENIES CP OR PRESSURE, HR 64. PULSES PALPABLE AND EQUAL THROUGHOUT, NO EDEMA. BREATHING ON 2L NC, EVEN AND UNLABORED, DENIES SOB OR DYSPNEA, CRACKLES TO UPPER LOBES, DIM TO BASES, O2 SAT 94% ABD ROUND AND SOFT WITH ACTIVE BOWEL SOUNDS, DENIES N/V/D. VOIDS URINE, INCONTINENT OF URINE AND STOOL, WILL PROVIDE PERICARE NEEDED. GENERALIZED WEAKNESS, WHEELCHAIR BOUND AT BASELINE, ABLE TO TURN AND REPOSITION SELF IN BED. IV TO LAC IN PLACE, DRY, PATENT, INTACT, INFUSING VANCO WELL, NO S&S PHLEBITIS OR INFILTRATION NOTED. COMFORT AND SAFETY MEASURES IN PLACE. ALL NEEDS ASSESSED AND ATTENDED TO. CALL LIGHT WITHIN REACH. WILL CONTINUE TO MONITOR
[2018-12-24 19:50] VITALS: BP 138/66
[2018-12-24 20:50] VITALS: BP 138/66
[2018-12-25 04:46] VITALS: BP 127/64
--- NOTE | 2018-12-25 04:52 | NUR ---
NO SIGNIFICANT CHANGES TO REPORT, PT COMPLIED WITH NURSING CARE THROUGHOUT THE SHIFT WITH NO ACUTE EVENTS OVERNIGHT. NO ACUTE DISTRESS OBSERVED AT THIS TIME. PT LAYING IN BED, BREATHING EVEN AND UNLABORED. COMFORT AND SAFETY MEASURES MAINTAINED. ALL NEEDS ASSESSED AND ATTENDED TO. CALL LIGHT WITHIN REACH. WILL CONTINUE TO MONITOR AND ENDORSE CARE TO DAY SHIFT NURSE
--- NOTE | 2018-12-25 07:10 | NUR ---
REPORT GIVEN TO JULIET DICKENS, TO ASSUME CARE OF PT. ALL QUESTIONS AND CONCERNS ADDRESSED. ALL CARES ENDORSED
--- NOTE | 2018-12-25 07:15 | NUR ---
RECEIVED PT IN BED A/A/OX4 DENIES [place]. C/O OFF AND ON DIZZINESS. NONE AT THIS TIME. RESP EVEN AND UNLABORED WITH CLEAR BS BILAT. DENIES ANY SOB/CP/PRESSURE AT THIS TIME. NO EDEMA NOTED. ABD SOFT, NONTENDER WITH ACTIVE BS X4. INCONTINENT OF URINE. WITH GEN WEAKNESS WC BOUND AT HOME WITH ORDER FOR PT EVAL. PT ABLE TO MOVE ALL EXTREMETIES AND ABLE TO ASSIST WITH TURNING IN BED. VOIDING FREELY. IV SL TO RAC. CALL LIGHT IN REACH NEEDS ATTENDED TO.
[2018-12-25 08:46] VITALS: BP 023/81; BP 123/81
--- NOTE | 2018-12-25 09:27 | NUR ---
PATIENT GIVEN MEDICATIONS ORDERED. MEDICATION EDUCATION WAS GIVEN. PATIENT TOLERATED MEDICATIONS WELL. ALL QUESTIONS AND CONCERNS ANSWERED. EVEN AND UNLABORED BREATHING, NO SIGNS OR COMPLAINTS OF SOB OR PAIN.
--- NOTE | 2018-12-25 10:27 | NUR ---
PUT IN ORDER FOR MOSELEY CATHETER. PATIENT REFUSED THE MOSELEY AT THIS TIME. PATINET'S BLADDER SCAN SHOWED 150-200ML. MADE AWARE. TO DISCHARGE PATIENT WITHOUT MOSELEY, TO FOLLOW UP WITH FAMILY.
--- NOTE | 2018-12-25 10:35 | NUR ---
PATIENT HAD AN INCONTINENT EPISODE AND PATIENT HAD A SMALL SOFT BROWN BOWEL MOVEMENT. PATIENT CLEANED AND MICHAEL CARE GIVEN. PATIENT HAD A PARTIAL LINEN CHANGE AND TOLERATED THE CLEANING AND REPOSITIONING WELL.
[2018-12-25 13:01] VITALS: BP 145/62
--- NOTE | 2018-12-25 14:47 | NUR ---
1350: PATIENT WAS EDUCATED ON THE DISCHARGE ORDERS. PATIENT GIVEN INFORMATION ON NEW MEDICATION AND PRE EXISTING MEDICAL CONDITION. PATIENT UNDERSTANDS THE DISCHARGE PACKET AND INSTRUCTIONS. ALL QUESTIONS AND CONCERNS ANSWERED. PATIENT SIGNED THE DISCHARGE PACKET. WAITING FOR CASE MANAGEMENT TO RESOLVE TRANSPORTATION REQUEST OF THE FAMILY.
--- NOTE | 2018-12-25 15:16 | NUR ---
CM WORKING ON SETTING UP TRANSPORTATION HOME FOR PT. 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
[2018-12-25 16:07] LABS: BASOPHIL % 0.1 % (0-2); PLATELET COUNT 274 x10^3mcL (130-400)
[2018-12-25 16:09] LABS: RED CELL DISTRIBUTION WIDTH 15.9 % (11.5-14.5)
[2018-12-25 16:15] LABS: CALCIUM 8.7 mg/dL (8.5-10.1); CARBON DIOXIDE 25.2 mmol/L (21-32); CHLORIDE SERUM 109 mmol/L (98-107); CREATININE SERUM 1.2 mg/dL (0.7-1.3); GLUCOSE SERUM 129 mg/dL (74-106); POTASSIUM SERUM 4.5 mmol/L (3.5-5.1); SODIUM SERUM 140 mmol/L (136-145)
== END 2018-12-25 18:16 | disposition home health service (06) | DRG 194 ==
LOC: ED 11:40 → DU 15:12
PROVIDERS: Emergency Medicine; ADMIT Internal Medicine Pulmonary Disease
DX: J18.9 Pneumonia, unspecified organism (principal); J96.11 Chronic respiratory failure with hypoxia; I48.20 Chronic atrial fibrillation, unspecified; J44.9 Chronic obstructive pulmonary disease, unspecified; I13.10 Hypertensive heart and chronic kidney disease without heart failure, with stage 1 through stage 4 chronic kidney disease, or unspecified chronic kidney disease; I25.10 Atherosclerotic heart disease of native coronary artery without angina pectoris; N18.9 Chronic kidney disease, unspecified; N40.1 Benign prostatic hyperplasia with lower urinary tract symptoms; R33.8 Other retention of urine; Z99.81 Dependence on supplemental oxygen; Z86.73 Personal history of transient ischemic attack (TIA), and cerebral infarction without residual deficits; Z79.01 Long term (current) use of anticoagulants; Z74.01 Bed confinement status; Z87.891 Personal history of nicotine dependence
CPT/HCPCS: 94150; G0378; J0456; J0696; J2920; J2930; J7030; J7050; J7060; J7613; Q0092